=== PATIENT | female | born 1990 | race Caucasian/White ===

== ENCOUNTER 2019-01-02 12:19 | Emergency (ER) | payer MEDICAID, OTHER ==
[~2019-01-02] VITALS: Ht 170.2 cm; Wt 75.0 kg
[~2019-01-02 12:19] MED LIST: DIPHENHYDRAMINE 50 MG INJ ONE; HALOPERIDOL 5 MG INJ ONE; LEVO50TA7 PO; LORAZEPAM 2 MG INJ ONE; PREN1TAB49
[2019-01-02] MEDS ORDERED: HALOPERIDOL 5 MG INJ IM STA (12:21)
[2019-01-02] MEDS ORDERED: LORAZEPAM 2 MG INJ IM STA (12:21)
[2019-01-02 12:28] VITALS: Ht 170.2 cm; Wt 75.0 kg
[2019-01-02] MEDS ORDERED: DIPHENHYDRAMINE 50 MG INJ IM ONE (12:30)
--- NOTE | 2019-01-02 13:18 | PSY ---
Date/Time of Note Date/Time of Note DATE: 01/02/19 TIME: 13:14 Psychiatric Subjective Eval Consent Pt consented to telemedicine: Yes Subjective Evaluation Patient location: emergency Chief Complaint: AGITATED FOUND IN [facility]. DELUSIONAL History of present illness HPI: 28 yo female with unclear psych hx, MD spoke with nurse. He reports pt was found at [facility] by 911, very belligerent, agitated, telling people and EMS she wanted to kill herself. Taken to ED. In ED, per attending pt was very agitated, delusional, said she was though not per attending. Also delusional about involvement with [employer]. MD attempted to speak with pt but pt was lethargic, they report pt had been medicated Past Psych Hx: unable to obtain PMHx: unable to obtain meds/Allergies MSE pt lethargic, will not respond to voice, per staff, she was, just minutes ago, fully conversant and engaging HPI; 28 yo female appear to have acute safety issues, though jalloh eval will be required when pt is able to engage [facility] [facility] [place] now For moderate agitation Zyprexa 5mg po prn For severe agitation chlorpromazine 25mg im prn Allergies: Coded Allergies: No Known Allergy (Unverified , 01/26/12) Psychiatric Objective Eval Mental Status Examination: Laboratory Results Laboratory Tests Test 01/02/19 12:55 01/02/19 13:04 White Blood Count 7.7 10^3/ul Red Blood Count 4.81 10^6/ul Hemoglobin 12.3 g/dl Hematocrit 38.2 % Mean Corpuscular Volume 79.4 fl Mean Corpuscular Hemoglobin 25.6 pg Mean Corpuscular Hemoglobin Concent 32.2 g/dl Red Cell Distribution Width 14.7 % Platelet Count 316 10^3/UL Mean Platelet Volume 10.0 fl Immature Granulocytes % 0.500 % Neutrophils % 71.2 % Lymphocytes % 16.1 % Monocytes % 6.7 % Eosinophils % 5.2 % Basophils % 0.3 % Nucleated Red Blood Cells % 0.0 /100WBC Immature Granulocytes # 0.040 10^3/ul Neutrophils # 5.5 10^3/ul Lymphocytes # 1.2 10^3/ul Monocytes # 0.5 10^3/ul Eosinophils # 0.4 10^3/ul Basophils # 0.0 10^3/ul Nucleated Red Blood Cells # 0.0 10^3/ul Urine Color YELLOW Urine Clarity CLEAR Urine pH 5.0 Urine Specific Crawford 1.024 Urine Ketones NEGATIVE mg/dL Urine Nitrite NEGATIVE mg/dL Urine Bilirubin NEGATIVE mg/dL Urine Urobilinogen NEGATIVE mg/dL Urine Leukocyte Esterase NEGATIVE Adri/ul Urine Hemoglobin NEGATIVE mg/dL Urine Glucose NEGATIVE mg/dL Urine Total Protein NEGATIVE mg/dl Assessment and Plan Recommendation/Plan Multiple antipsychotics: No Discharge Disposition: Psychiatric inpatient Legal Status: Place involuntary hold EMELIAANNA GILBERT Jan 02, 2019 13:18
--- NOTE | 2019-01-02 14:20 | ERD ---
ER Documentation Chief Complaint Chief Complaint AGITATED FOUND IN [facility]. DELUSIONAL HPI Patient is a 28-year-old female with no medical problems who presents with agitation. The patient was brought in by ambulance and police. 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 The police were called because she was making threats that she was going to "shoot up the [facility]". Upon review of old medical records the patient one previous visit to the ER 2011. Review of the emergency department information exchange system shows visits to 2 separate emergency departments. I cannot obtain history otherwise who please note the history and physical exam is limited. ROS All systems reviewed and are negative except as per history of present illness. Medications Home Meds No Active Prescriptions or Reported Meds Allergies Allergies: Coded Allergies: No Known Allergy (Unverified , 01/26/12) PMhx/Soc Medical and Surgical Hx: pt denies Medical Hx, pt denies Surgical Hx Hx Alcohol Use: No (DENIES) Hx Substance Use: No (DENIES) Hx Tobacco Use: Yes Smoking Status: Current every day smoker FmHx Unable to obtain Physical Exam Vitals Vital Signs Date Temp Pulse Resp B/P (MAP) Pulse Ox O2 O2 Flow FiO2 Time Delivery Rate 01/02/19 88 16 105/72 99 12:50 (83) 01/02/19 106 20 106/73 98 12:40 (84) 01/02/19 98.2 148 22 128/85 97 12:28 (99) 01/02/19 98.2 148 22 128/85 97 12:25 (99) Physical Exam Const: Yelling and combative Head: Atraumatic Eyes: Normal Conjunctiva ENT: Normal External Ears, Nose and Mouth. Neck: Full range of motion. No meningismus. Resp: Clear to auscultation bilaterally Cardio: Regular rate and rhythm, no murmurs Abd: Soft, non tender, non distended. Normal bowel sounds Skin: No petechiae or rashes Back: No midline or flank tenderness Ext: No cyanosis, or edema Neur: Awake but yelling and combative, moving all 4 extremities Psych: Acute psychosis saying that she is an FBI and permit agent Result Diagram: 01/02/19 1255 01/02/19 1255 Results 24 hrs Laboratory Tests Test 01/02/19 12:54 01/02/19 12:55 01/02/19 13:04 Serum HCG, Qualitative NEGATIVE White Blood Count 7.7 10^3/ul Red Blood Count 4.81 10^6/ul Hemoglobin 12.3 g/dl Hematocrit 38.2 % Mean Corpuscular Volume 79.4 fl Mean Corpuscular Hemoglobin 25.6 pg Mean Corpuscular 32.2 g/dl Hemoglobin Concent Red Cell Distribution Width 14.7 % Platelet Count 316 10^3/UL Mean Platelet Volume 10.0 fl Immature Granulocytes % 0.500 % Neutrophils % 71.2 % Lymphocytes % 16.1 % Monocytes % 6.7 % Eosinophils % 5.2 % Basophils % 0.3 % Nucleated Red Blood Cells % 0.0 /100WBC Immature Granulocytes # 0.040 10^3/ul Neutrophils # 5.5 10^3/ul Lymphocytes # 1.2 10^3/ul Monocytes # 0.5 10^3/ul Eosinophils # 0.4 10^3/ul Basophils # 0.0 10^3/ul Nucleated Red Blood Cells # 0.0 10^3/ul Sodium Level 140 mmol/L Potassium Level 3.4 mmol/L Chloride Level 106 mmol/L Carbon Dioxide Level 23 mmol/L Anion Gap 11 Blood Urea Nitrogen 9 mg/dl Creatinine 0.63 mg/dl Est Glomerular Filtrat > 60 mL/min Rate mL/min Glucose Level 110 mg/dl Calcium Level 9.4 mg/dl Total Bilirubin 0.4 mg/dl Direct Bilirubin 0.00 mg/dl Indirect Bilirubin 0.4 mg/dl Aspartate Amino 28 IU/L Transf (AST/SGOT) Alanine 23 IU/L Aminotransferase (ALT/SGPT) Alkaline Phosphatase 68 IU/L Total Protein 7.2 g/dl Albumin 4.2 g/dl Globulin 3.00 g/dl Albumin/Globulin Ratio 1.40 Salicylates Level < 1.0 mg/dl Acetaminophen Level < 10.0 ug/ml Ethyl Alcohol Level < 10.0 mg/dl Urine Color YELLOW Urine Clarity CLEAR Urine pH 5.0 Urine Specific [place] 1.024 Urine Ketones NEGATIVE mg/dL Urine Nitrite NEGATIVE mg/dL Urine Bilirubin NEGATIVE mg/dL Urine Urobilinogen NEGATIVE mg/dL Urine Leukocyte Esterase NEGATIVE Adri/ul Urine Hemoglobin NEGATIVE mg/dL Urine Glucose NEGATIVE mg/dL Urine Total Protein NEGATIVE mg/dl Urine Opiates Screen Negative Urine Barbiturates Negative Urine Amphetamines Screen POSITIVE Urine Benzodiazepines Screen Negative Urine Cocaine Screen Negative Urine Cannabinoids Negative Current Medications Medications Dose Sig/Neida Start Time Status Last (Trade) Ordered Route PRN Stop Time Admin Dose Reason Admin Lorazepam 2 mg ONCE STAT 01/02/19 DC 01/02/19 (Ativan) IM 12:21 12:45 01/02/19 12:23 Haloperidol 10 mg ONCE STAT 01/02/19 DC 01/02/19 (Haldol) IM 12:21 12:46 01/02/19 12:23 50 mg ONCE ONCE 01/02/19 DC 01/02/19 Diphenhydrami IM 12:30 12:46 ne HCl 01/02/19 12:31 (Benadryl) Procedures/MDM Patient is a 28-year-old female who presents with combativeness. She was aggressive towards staff. She needed sedation with Haldol, Ativan, and Benadryl. Restraints were applied initially and then taken off when she was sedated. The patient is now medically clear for psychiatric admission. The patient was seen by psychiatry who recommended a 5150 hold. The patient will be signed out to the oncoming physician. Critical Care: Time: 35 minutes excluding all billable procedures. Treatments/Evaluations: Close monitoring and treatment of unstable vital signs, cardiorespiratory, and neurologic status, while maintaining tight balance of fluid, respiratory, and cardiac interventions. Departure Diagnosis: Primary Impression: Psychosis Psychosis type: unspecified psychosis type Qualified Codes: F29 - Unspecified psychosis not due to a substance or known physiological condition Condition: MAGDI Ramon MD Jan 02, 2019 14:20
[2019-01-02] MEDS ORDERED: FLUCONAZOLE 200 MG TAB PO ONE (16:00)
--- NOTE | 2019-01-03 03:58 | EN ---
Date/Time of Note Date/Time of Note DATE: 01/03/19 TIME: 03:57 ER Progress Note Observation Note: Time: 4 hours Family Hx: No Hypertension Evaluation: This patient has had no agitation overnight, he has remained calm and does have a bed available at [facility] [place] at 8 AM Thursday, January 03] BECKI HEMPHILL DO Jan 03, 2019 03:58
[2019-01-03 08:00] VITALS: BP 113/66; PULSE 88; RESP 16
== END 2019-01-03 08:08 ==
LOC: E/R 12:19
DX: F29 Unspecified psychosis not due to a substance or known physiological condition (principal); R40.2142 Coma scale, eyes open, spontaneous, at arrival to emergency department; R40.2252 Coma scale, best verbal response, oriented, at arrival to emergency department; R40.2362 Coma scale, best motor response, obeys commands, at arrival to emergency department; F17.210 Nicotine dependence, cigarettes, uncomplicated
CPT/HCPCS: 36415; 80053; 80307; 81003; 84703; 85025; 96372; J1200; J1630; J2060; P9612; Z7502; Z7610; A4310

== ENCOUNTER 2019-05-06 17:30 | Emergency (ER) | payer OTHER ==
[~2019-05-06] VITALS: Ht 170.2 cm; Wt 96.3 kg
[2019-05-06 18:19] VITALS: Ht 170.2 cm; Wt 96.3 kg
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
[2019-05-06] MEDS ORDERED: SOD CHLORIDE 0.9% 1,000 ML IV ONE (20:00)
[2019-05-06] MEDS ORDERED: CEFTRIAXONE 1 GM/50 ML (PMX) 50 ML IVPB ONE (20:00)
[2019-05-06] MEDS ORDERED: ACETAMINOPHEN 325 MG TAB PO ONE (20:00)
[2019-05-06] MEDS ORDERED: DEXAMETHASONE 10 MG/ML 1 ML INJ IV ONE (20:00)
[2019-05-06] MEDS ORDERED: IBUPROFEN 200 MG TAB PO ONE (20:00)
[2019-05-06] MEDS ORDERED: SULF1TAB31 PO (20:29)
[2019-05-06] MEDS ORDERED: CEPH-443 PO (20:29)
[2019-05-06] MEDS ORDERED: ACET325T33 PO (20:29)
[2019-05-06 21:59] VITALS: BP 108/57; PULSE 86; RESP 18
== END 2019-05-06 22:00 | disposition home or self-care (01) ==
LOC: FTE 17:30
DX: L03.115 Cellulitis of right lower limb (principal); F17.210 Nicotine dependence, cigarettes, uncomplicated; L03.116 Cellulitis of left lower limb
CPT/HCPCS: J0696; J1100; J7030; Z7610; 96365; 96375

== ENCOUNTER 2019-05-21 00:39 | Emergency (ER) | payer OTHER ==
[~2019-05-21] VITALS: Ht 167.6 cm; Wt 91.8 kg
[~2019-05-21 00:39] MED LIST changes: +ACET325T33 PO; +CEPH-443 PO; -DIPHENHYDRAMINE 50 MG INJ ONE; -HALOPERIDOL 5 MG INJ ONE; +IBUP-1542 PO; +IBUP800T48 PO; -LEVO50TA7 PO; -LORAZEPAM 2 MG INJ ONE; -PREN1TAB49; +SULF1TAB31 PO
[2019-05-21 00:53] VITALS: Ht 167.6 cm; Wt 91.8 kg
[2019-05-21] MEDS ORDERED: KETOROLAC 30 MG INJ IM STA (02:55)
[2019-05-21 04:21] VITALS: BP 108/72; PULSE 74; RESP 17
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
== END 2019-05-21 04:30 | disposition home or self-care (01) ==
LOC: FTE 00:39
DX: S83.91XA Sprain of unspecified site of right knee, initial encounter (principal); V48.4XXA Person boarding or alighting a car injured in noncollision transport accident, initial encounter
CPT/HCPCS: 73562; 73590; 73610; 81025; 96372; J1885; Z7502

== ENCOUNTER 2019-05-28 02:47 | Emergency (ER) | payer OTHER ==
[~2019-05-28] VITALS: Ht 167.6 cm; Wt 93.8 kg
[2019-05-28 03:39] VITALS: BP 123/72; RESP 20; Ht 167.6 cm; Wt 93.8 kg
[2019-05-28] MEDS ORDERED: KETOROLAC 30 MG INJ IM STA (05:30)
[2019-05-28 06:00] VITALS: PULSE 97
== END 2019-05-28 06:00 | disposition home or self-care (01) ==
LOC: FTE 02:47
DX: S83.91XA Sprain of unspecified site of right knee, initial encounter (principal); F17.210 Nicotine dependence, cigarettes, uncomplicated; X58.XXXA Exposure to other specified factors, initial encounter; Y92.9 Unspecified place or not applicable
CPT/HCPCS: 81025; J1885; 96372

== ENCOUNTER 2019-05-29 23:35 | Emergency (ER) | payer OTHER ==
[~2019-05-29] VITALS: Ht 167.6 cm; Wt 96.9 kg
[2019-05-29 23:43] VITALS: BP 76/95; PULSE 94; RESP 18; Ht 167.6 cm; Wt 96.9 kg
== END 2019-05-30 01:54 | disposition home or self-care (01) ==
LOC: FTE 23:35
DX: M79.89 Other specified soft tissue disorders (principal); F17.210 Nicotine dependence, cigarettes, uncomplicated
CPT/HCPCS: 93970; Z7502

== ENCOUNTER 2019-06-02 01:19 | Emergency (ER) | payer OTHER ==
[~2019-06-02] VITALS: Ht 167.6 cm; Wt 96.7 kg
[2019-06-02 01:25] VITALS: Ht 167.6 cm; Wt 96.7 kg
[2019-06-02] MEDS ORDERED: IBUPROFEN 800 MG TAB PO ONE (04:00)
== END 2019-06-02 04:30 | disposition home or self-care (01) ==
LOC: FTE 01:19
DX: M25.561 Pain in right knee (principal); M25.562 Pain in left knee; M79.672 Pain in left foot; M79.671 Pain in right foot; F17.210 Nicotine dependence, cigarettes, uncomplicated
CPT/HCPCS: 73562; 73630; Z7610